=== PATIENT | female | born 1980 | race Caucasian/White ===

== ENCOUNTER → 2021-01-20 | Outpatient (CLI) | payer BC ==
[~2021-01-20] MED LIST: ALDACTONE50 MG PO; CAROSPIR25 MG/5 ML PO; PRENATAL1 TA1 PO
== END ==
LOC: MC.RAD 09:57
DX: Z12.31 Encounter for screening mammogram for malignant neoplasm of breast (principal)

== ENCOUNTER → 2022-06-15 | Outpatient (CLI) | payer BC | LOC: MC.RAD 10:55 | DX: Z12.31 Encounter for screening mammogram for malignant neoplasm of breast (principal) ==